=== PATIENT | female | born 1930 | race African-American/Black ===

== ENCOUNTER 2016-12-19 18:47 | Emergency (ER) | payer OTHER, MEDICAID ==
[~2016-12-19] VITALS: Ht 170.2 cm; Wt 59.0 kg
[~2016-12-19 18:47] MED LIST: CYAN500L3 PO; DOCU250C3 PO; DONETAB6 PO; MEMA10TA PO; MIRT30TA PO; SIMV-8 PO; WARF5TAB71 PO
[2016-12-19] MEDS ORDERED: ASPirin 81 mg TAB PO ONE (19:45)
[2016-12-19 21:04] LABS: Basophils # (auto) 0 uL; Basophils % (auto) 1.1 % (0.0-2.0); Eosinophils # (auto) 0.1 uL; Eosinophils % (auto) 2.6 % (0.0-7.0); Hematocrit 36.7 % (36.0-46.0); Lymphocytes # (auto) 0.9 uL; Lymphocytes % (auto) 20.9 % (10.0-50.0); Mean Corpuscular Hemoglobin 29.1 pg (28.0-32.0); Mean Corpuscular Hgb Conc. 32.6 g/dL (32.0-36.0); Mean Corpuscular Volume 89.4 fL (80.0-100.0); Mean Platelet Volume 9.2 fL (7.4-10.4); Monocytes # (auto) 0.3 uL; Monocytes % (auto) 7.8 % (0.0-12.0); Neutrophils # (auto) 2.9 uL; Neutrophils % (auto) 67.6 % (37.0-80.0); Platelet Count (auto) 223 10^3/uL (140-450); Red Cell Distribution Width 17.2 % (11.6-16.0); White Blood Cell 4.3 10^3/uL (4.4-10.8)
[2016-12-19 21:13] LABS: Albumin 3.2 g/dL (3.4-5.0); Calcium 8.3 mg/dL (8.5-10.1); Potassium 4.1 mmol/L (3.5-5.1)
[2016-12-19 21:23] LABS: BUN/Creatinine Ratio 12.9; Bilirubin, Total 0.4 mg/dL (0.2-1.0); Magnesium 2.4 mg/dL (1.6-2.6); Total Protein 7.3 g/dL (6.4-8.2)
[2016-12-19 21:48] LABS: B-Type Natriuretic Peptide 154.72 pg/mL (0-100); Temperature: 23.4 C (20.0-25.0)
[2016-12-19 23:15] VITALS: BP 139/62
== END 2016-12-20 | disposition home or self-care (01) ==
LOC: EDBD 18:47 → ER 19:04
DX: R07.89 Other chest pain (principal); E78.5 Hyperlipidemia, unspecified; I10 Essential (primary) hypertension; Z95.0 Presence of cardiac pacemaker
CPT/HCPCS: 36415; 70450; 71010; 80053; 83735; 83880; 84484; 85025; 94761